=== PATIENT | male | born 1990 | race African-American/Black ===

== ENCOUNTER 2021-12-10 22:34 | Emergency (ER) | payer MEDICAID ==
[~2021-12-10] VITALS: Ht 170.2 cm; Wt 57.0 kg
[2021-12-10 22:36] VITALS: BP 128/77
[2021-12-10] MEDS ORDERED: ACETAMINOPHEN 325MG TABLET PO ONE (23:45)
[2021-12-11] MEDS ORDERED: IBUP-2029 MT (00:07)
== END 2021-12-11 00:46 | disposition home or self-care (01) ==
LOC: ER 22:34
DX: S93.492A Sprain of other ligament of left ankle, initial encounter (principal); X58.XXXA Exposure to other specified factors, initial encounter; Y93.89 Activity, other specified; Y92.89 Other specified places as the place of occurrence of the external cause; Y99.8 Other external cause status
CPT/HCPCS: 73610; 99283

== ENCOUNTER 2021-12-14 17:29 | Emergency (ER) | payer MEDICAID ==
[~2021-12-14] VITALS: Ht 170.2 cm; Wt 57.0 kg
[~2021-12-14 17:29] MED LIST: IBUP-2029 MT
[2021-12-14 19:23] VITALS: BP 186/49
== END 2021-12-14 19:23 | disposition home or self-care (01) ==
LOC: ER 17:29
DX: S93.402A Sprain of unspecified ligament of left ankle, initial encounter (principal); X58.XXXA Exposure to other specified factors, initial encounter; Y93.89 Activity, other specified; Y92.89 Other specified places as the place of occurrence of the external cause
CPT/HCPCS: 99281